=== PATIENT | female | born 1960 ===

== ENCOUNTER → 2018-08-02 20:39 | Outpatient (REF) | payer SELFPAY ==
[2018-08-02 20:55] LABS: Add Manual Diff / Slide Review NO; Basophils Percent Auto 0.7 % (0-2); Eosinophils Percent Auto 2.8 % (2-4); Hematocrit 40.9 % (36-46); Hemoglobin 13.3 g/dL (12.0-16.0); Lymphocytes Percent Auto 26.9 % (25-40); Mean Corpuscular HGB Conc 32.6 % (30-36); Mean Corpuscular Hemoglobin 29.2 PG (26-34); Mean Corpuscular Volume 89.6 fL (80-100); Monocytes Percent Auto 12.1 % (3-14); Neutrophils Absolute Auto 2100 /uL (1500-7000); Neutrophils Percent Auto 57.5 % (50-75); Platelet Count 249 X10^3/uL (150-400); Red Blood Cell Count 4.56 X10^6/uL (4.0-5.2); Red Cell Distribution Width 13.2 % (11.6-14.8); White Blood Cell Count 3.6 X10^3/uL (4.5-11.0)
[2018-08-02 21:17] LABS: Free T4, Direct Thyroxine 1.06 ng/dL (0.78-2.19)
[2018-08-02 21:31] LABS: Thyroid Stimulating Hormone 0.57 uIU/mL (0.47-4.68)
[2018-08-05 08:04] LABS: Progesterone 1.7 ng/mL
[2018-08-05 19:55] LABS: Estrogen 140.2 pg/mL
[2018-08-07 15:17] LABS: Testosterone Free 1.8 pg/mL (0.1-6.4); Testosterone Total 13 ng/dL (2-45)
== END ==
LOC: LAB 20:39
PROVIDERS: Visit Provider Physician Assistant
DX: N95.1 Menopausal and female climacteric states (principal); Z79.890 Hormone replacement therapy; E03.9 Hypothyroidism, unspecified
CPT/HCPCS: 36415; 82672; 84144; 84402; 84403; 84439; 84443; 85025